=== PATIENT | female | born 1985 | race Caucasian/White ===

== ENCOUNTER 2019-05-21 14:30 | Emergency (ER) | payer OTHER, SELFPAY ==
[2019-05-21 16:27] LABS: Urine Blood NEGATIVE (NEG); Urine Glucose NEGATIVE (NEG); Urine Protein NEGATIVE (NEG); Urine Specific Gravity 1.015 (1.005-1.030)
[2019-05-21 16:49] LABS: Absolute Lymphocytes (CBC) 2.3 K/uL (0.7-4.9); Basophils % 0.5 % (0-1.3); Hematocrit 41.7 % (36.0-45.0); Lymphocytes % 28.9 % (15.3-44.8); MPV 7.8 fL (7.6-11.3); RBC Red Blood Cell Count 4.82 M/uL (3.86-4.86)
[2019-05-21 17:03] LABS: ALT/SGPT 19 U/L (12-78); AST/SGOT 12 U/L (15-37); Alkaline Phosphatase 112 U/L (45-117); BUN Blood Urea Nitrogen 8 mg/dL (7-18); Bicarbonate 28 mmol/L (21-32); Bilirubin Direct 0.2 mg/dL (0-0.2); Bilirubin Total 0.6 mg/dL (0.2-1.0); Glucose Level 85 mg/dL (74-106); Lipase 117 U/L (73-393); Magnesium 2.3 mg/dL (1.8-2.4); Potassium 4.1 mmol/L (3.5-5.1); Protein, Total 7.9 g/dL (6.4-8.2); Sodium Level 139 mmol/L (136-145)
[2019-05-21] MEDS ORDERED: ONDANSETRON 4 MG/2 ML VIAL ONE (17:14)
[2019-05-21] MEDS ORDERED: NA CHLORIDE 0.9% 1,000 ML ONE (17:14)
--- NOTE | 2019-05-21 17:52 | ER ---
Nurse's Notes [facility] Name: Sara Walton Age: 33 yrs Sex: Female : 1985 Arrival Date: 05/21/2019 Time: 14:32 Bed 24 Private MD: Diagnosis: Nausea and vomiting;Diarrhea, unspecified Presentation: 05/21 14:56 Presenting complaint: Patient states: "I threw up twice last night and I've been going aj1 to the bathroom all night, everyone at work has had this same thing" Patient reports abdominal cramping, N/V/D. Denies fever. Transition of care: patient was not received from another setting of care. Onset of symptoms was May 2019. Risk Assessment: Do you want to hurt yourself or someone else? Patient reports no desire to harm self or others. Initial Sepsis Screen: Does the patient meet any 2 criteria? No. Patient's initial sepsis screen is negative. Does the patient have a suspected source of infection? Yes: Acute abdominal pain. Care prior to arrival: None. 14:56 Method Of Arrival: Ambulatory [facility] 14:56 Acuity: WOO 3 aj Triage Assessment: 14:58 General: Appears in no apparent distress. comfortable, Behavior is calm, cooperative, aj1 appropriate for age. Pain: Pain currently is 6 out of 10 on a pain scale. Neuro: Level of Consciousness is awake, alert, obeys commands. Cardiovascular: Patient's skin is warm and dry. Respiratory: Airway is patent Respiratory effort is even, unlabored, Respiratory pattern is regular, symmetrical. GI: Reports cramping, diarrhea, nausea, vomiting. 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 - Coronavirus screen:: The patient has NOT traveled to [place] in the past 14 days. - Social history:: Smoking status: Patient/guardian denies using tobacco. - Ebola Screening: : Patient denies travel to an Ebola-affected area in the 21 days before illness onset. Screenin:00 Abuse screen: Denies threats or abuse. Denies injuries from another. Nutritional ls4 screening: No deficits noted. Tuberculosis screening: No symptoms or risk factors identified. Fall Risk None identified. Assessment: 16:00 General: Appears in no apparent distress. Behavior is calm, cooperative. ls4 16:00 Pain: Complains of pain in umbilical area and right lower quadrant Pain currently is 0 ls4 out of 10 on a pain scale. Quality of pain is described as crampy, Pain began suddenly, Is intermittent. Neuro: No deficits noted. Cardiovascular: No deficits noted. Respiratory: No deficits noted. GI: Bowel sounds present X 4 quads. Abd is soft and non tender X 4 quads. Reports cramping, diarrhea, vomiting, vomitted twice yesterday. : No deficits noted. Derm: No deficits noted. Musculoskeletal: No deficits noted. 17:00 Reassessment: Patient appears in no apparent distress at this time. Patient and/or ls4 family updated on plan of care and expected duration. Pain level reassessed. Patient is alert, oriented x 3, equal unlabored respirations, skin warm/dry/pink. 18:00 Reassessment: Patient appears in no apparent distress at this time. Patient and/or ls4 family updated on plan of care and expected duration. Pain level reassessed. Patient is alert, oriented x 3, equal unlabored respirations, skin warm/dry/pink. Vital Signs: 14:58 BP 123 / 82; Pulse 68; Resp 18; Temp 98.2; Pulse Ox 98% on R/A; Weight 69.4 kg (R); aj1 Height 5 ft. 2 in. (157.48 cm); Pain 6/10; 16:00 BP 110 / 74; Pulse 64; Resp 14; Temp 98.2(O); Pulse Ox 99% on R/A; Pain 0/10; ls4 18:02 BP 108 / 84; Pulse 66; Resp 16; Temp 98.7(O); Pulse Ox 100% ; lt1 14:58 Body Mass Index 27.98 (69.40 kg, 157.48 cm) aj1 ED Course: 14:32 Patient arrived in ED. ag5 14:57 Triage completed. aj1 14:58 Arm band placed on Patient placed in waiting room, Patient notified of wait time. aj1 15:55 Iglesia Small PA is PHCP. cp 15:55 Trey De Leon MD is Attending Physician. cp 16:00 Patient has correct armband on for positive identification. Bed in low position. Call ls4 light in reach. Side rails up X2. Pulse ox on. NIBP on. Warm blanket given. Pillow given. Verbal reassurance given. Diet: Patient is NPO. 16:00 No provider procedures requiring assistance completed. Urine collected: clean catch ls4 specimen, clear. Patient maintains SpO2 saturation greater than 95% on room air. 16:03 Do Sanchez, RN is Primary Nurse. ls4 16:36 Initial lab(s) drawn, by me, sent to lab. Inserted saline lock: 22 gauge in right dh3 antecubital area, using aseptic technique. Blood collected. 17:54 Diet: Patient given snack. Patient given water. Tolerated well. ls4 18:30 IV discontinued, intact, bleeding controlled, No redness/swelling at site. ls4 Administered Medications: 17:10 Drug: Zofran 4 mg Route: IVP; Site: right antecubital; ls4 17:32 Follow up: Response: No adverse reaction; Marked relief of symptoms ls4 17:39 Follow up: Response: No adverse reaction ls4 17:10 Drug: NS 0.9% 1000 ml Route: IV; Rate: 1 bolus; Site: right antecubital; ls4 18:10 Follow up: IV Status: Completed infusion; IV Intake: 1000ml ls4 17:53 Drug: Bentyl 20 mg Route: PO; ls4 18:10 Follow up: Response: No adverse reaction ls4 Intake: 18:10 IV: 1000ml; Total: 1000ml. ls4 Outcome: 17:50 Discharge ordered by . cp 18:32 Condition: stable ls4 18:32 Discharged to home ambulatory. ls4 18:32 Discharge instructions given to patient, Instructed on discharge instructions, follow up and referral plans. medication usage, Demonstrated understanding of instructions, follow-up care, medications, Prescriptions given X 1. 18:41 Patient left the ED. ls4 Signatures: Tena La RN RN aj1 Iglesia Small PA PA cp Herrera, Deanna 3 Do Sanchez RN RN ls4 Jayshree Claros 5 Ivanna Ramires 1
--- NOTE | 2019-05-21 17:53 | EDPHYS ---
Physician Documentation [facility] Name: Sara Walton Age: 33 yrs Sex: Female : 1985 Arrival Date: 05/21/2019 Time: 14:32 Bed 24 Private MD: ED Physician Trey De Leon HPI: 05/21 16:05 This 33 yrs old Female presents to ER via Ambulatory with complaints of cp Abdominal Pain, Vomiting/Diarrhea. 16:05 The patient presents with abdominal pain that is diffuse. Onset: The symptoms/episode cp began/occurred last night. Associated signs and symptoms: Pertinent positives: nausea and vomiting, diarrhea, Pertinent negatives: blood in stools, chest pain, constipation, fever, vomiting blood. The symptoms are described as crampy. Severity of pain: in the emergency department the pain is unchanged despite home interventions. Patient reports several co-workers with similar symptoms. 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 - Coronavirus screen:: The patient has NOT traveled to [place] in the past 14 days. - Social history:: Smoking status: Patient/guardian denies using tobacco. - Ebola Screening: : Patient denies travel to an Ebola-affected area in the 21 days before illness onset. ROS: 16:10 Constitutional: Negative for body aches, chills, fever, poor PO intake. cp 16:10 Eyes: Negative for injury, pain, redness, and discharge. cp 16:10 ENT: Negative for drainage from ear(s), ear pain, sore throat, difficulty swallowing, difficulty handling secretions. 16:10 Cardiovascular: Negative for chest pain. 16:10 Respiratory: Negative for cough, shortness of breath, wheezing. 16:10 Abdomen/GI: Positive for nausea, vomiting, and diarrhea, abdominal cramps, Negative for constipation, hematemesis, black/tarry stool, rectal bleeding. 16:10 Back: Negative for radiated pain. 16:10 : Negative for urinary symptoms. 16:10 Skin: Negative for rash. 16:10 Neuro: Negative for altered mental status, headache, weakness. 16:10 All other systems are negative. Exam: 16:20 Constitutional: The patient appears in no acute distress, alert, awake, non-toxic, well cp developed, well nourished. 16:20 Head/Face: Normocephalic, atraumatic. cp 16:20 Eyes: Periorbital structures: appear normal, Conjunctiva: normal, no exudate, no injection, Sclera: no appreciated abnormality, Lids and lashes: appear normal, bilaterally. 16:20 ENT: External ear(s): are unremarkable, Nose: is normal, Mouth: Lips: moist, Oral mucosa: pink and intact, moist, Posterior pharynx: is normal, airway is patent, no erythema, no exudate. 16:20 Chest/axilla: Inspection: normal, Palpation: is normal, no crepitus, no tenderness. 16:20 Cardiovascular: Rate: normal, Rhythm: regular. 16:20 Respiratory: the patient does not display signs of respiratory distress, Respirations: normal, no use of accessory muscles, labored breathing, is not present, Breath sounds: are clear throughout, no decreased breath sounds. 16:20 Abdomen/GI: Inspection: abdomen appears normal, Bowel sounds: active, all quadrants, Palpation: soft, in all quadrants, mild abdominal tenderness, in all quadrants, voluntary guarding, is not appreciated, involuntary guarding, is not appreciated. 16:20 Back: pain, is absent, ROM is normal. 16:20 Skin: no rash present. Vital Signs: 14:58 BP 123 / 82; Pulse 68; Resp 18; Temp 98.2; Pulse Ox 98% on R/A; Weight 69.4 kg (R); aj1 Height 5 ft. 2 in. (157.48 cm); Pain 6/10; 16:00 BP 110 / 74; Pulse 64; Resp 14; Temp 98.2(O); Pulse Ox 99% on R/A; Pain 0/10; ls4 18:02 BP 108 / 84; Pulse 66; Resp 16; Temp 98.7(O); Pulse Ox 100% ; lt1 14:58 Body Mass Index 27.98 (69.40 kg, 157.48 cm) aj1 MDM: 15:59 Patient medically screened. cp 16:20 Differential diagnosis: appendicitis, cholecystitis, Cholelithiasis, gastritis, cp non-specific abd pain, pancreatitis, colitis, dehydration, electrolyte abnormality. 17:50 Data reviewed: vital signs, nurses notes, lab test result(s). 17:50 Special discussion: Based on the patient's Hx, exam, and Dx evaluation, there is no cp indication for emergent surgery or inpatient Tx. It is understood by the patient/guardian that if the Sx's persist or worsen they need to return immediately for re-evaluation. ED course: VSS. No vomiting observed while in ED. Will discharge to home for continued monitoring. 05/21 16:00 Order name: Basic Metabolic Panel; Complete Time: 17:07 05/21 16:00 Order name: CBC with Diff; Complete Time: 16:51 05/21 16:51 Interpretation: Reviewed. 05/21 16:00 Order name: Creatinine for Radiology; Complete Time: 17:07 05/21 16:00 Order name: Hepatic Function; Complete Time: 17:07 05/21 17:07 Interpretation: Normal except: AST 12; GLOB 3.9; A/G 1.0. 05/21 16:00 Order name: Lipase; Complete Time: 17:07 05/21 16:00 Order name: IV Saline Lock; Complete Time: 16:47 05/21 16:03 Order name: Influenza Screen (a \T\ B); Complete Time: 17:07 05/21 16:09 Order name: Magnesium; Complete Time: 17:07 EDMD 05/21 16:23 Order name: Urine Dipstick--Ancillary (enter results); Complete Time: 16:51 [facility] 05/21 16:23 Order name: Urine --Ancillary (enter results) [facility] 05/21 16:00 Order name: Labs collected and sent; Complete Time: 16:47 05/21 16:00 Order name: Urine Dipstick-Ancillary (obtain specimen); Complete Time: 17:06 05/21 16:00 Order name: Urine Test (obtain specimen); Complete Time: 17:05 05/21 17:09 Order name: PO challenge; Complete Time: 17:54 cp Administered Medications: 17:10 Drug: Zofran 4 mg Route: IVP; Site: right antecubital; ls4 17:32 Follow up: Response: No adverse reaction; Marked relief of symptoms ls4 17:39 Follow up: Response: No adverse reaction ls4 17:10 Drug: NS 0.9% 1000 ml Route: IV; Rate: 1 bolus; Site: right antecubital; ls4 18:10 Follow up: IV Status: Completed infusion; IV Intake: 1000ml ls4 17:53 Drug: Bentyl 20 mg Route: PO; ls4 18:10 Follow up: Response: No adverse reaction ls4 Disposition: 05/21/19 17:50 Discharged to Home. Impression: Nausea and vomiting, Diarrhea, unspecified. - Condition is Stable. - Discharge Instructions: Food Choices to Help Relieve Diarrhea, Adult, Diarrhea, Adult, Nausea and Vomiting, Adult. - Prescriptions for Zofran 4 mg Oral Tablet - take 1 tablet by ORAL route every 12 hours As needed; 20 tablet. - Medication Reconciliation Form, Thank You Letter, Antibiotic Education, Prescription Opioid Use, Work release form form. - Follow up: Private Physician; When: 1 - 2 days; Reason: Worsening of condition. - Problem is new. - Symptoms have improved. Addendum: 05/24/2019 07:13 Co-signature as Attending Physician, Trey De Leon MD I agree with the assessment and k dr plan of care. Signatures: Dispatcher [employer] Tena Godinez RN RN aj1 Trey De Leon MD MD [facility] Iglesia Small PA PA cp Do Sanchez RN RN ls4 Corrections: (The following items were deleted from the chart) 05/21 16:12 16:03 MAGNESIUM+[id number] ordered. [facility] 18:41 17:50 05/21/2019 17:50 Discharged to Home. Impression: Nausea and vomiting; Diarrhea, ls4 unspecified. Condition is Stable. Forms are Medication Reconciliation Form, Thank You Letter, Antibiotic Education, Prescription Opioid Use. Follow up: Private Physician; When: 1 - 2 days; Reason: Worsening of condition. Problem is new. Symptoms have improved. cp
[2019-05-21] MEDS ORDERED: DICYCLOMINE HCL 10 MG CAP ONE (17:57)
[2019-05-21 19:45] VITALS: BP 108/84; TEMP 98.7; O2SAT 100
== END 2019-05-21 18:41 | disposition home or self-care (01) ==
LOC: ER 14:30
DX: R11.2 Nausea with vomiting, unspecified (principal); R19.7 Diarrhea, unspecified
CPT/HCPCS: 36415; 80048; 80076; 81003; 81025; 83690; 83735; 85025; 87804; 96361; 96374; 99284; J2405; J7030